=== PATIENT | female | born 1950 | race Caucasian/White ===

== ENCOUNTER 2019-02-11 11:02 | Day surgery (SDC) | payer MEDICARE ==
[~2019-02-11] VITALS: Ht 165.1 cm; Wt 80.3 kg
[~2019-02-11 11:02] MED LIST: ATOR40TA PO; CELE200 PO; HYDR1TAB94 PO; METF500 PO; OXYACE5T PO
[2019-02-11] MEDS ORDERED: NAPR500 (11:19)
[2019-02-11] MEDS ORDERED: GABA300 (11:19)
== END 2019-02-11 12:00 | disposition home or self-care (01) ==
LOC: ORSCSDS 11:02
PROVIDERS: Anesthesiology
PROC: 3E0R33Z Introduction of Anti-inflammatory into Spinal Canal, Percutaneous Approach (ICD-10-PCS; principal; 2019-02-11 12:00)
DX: M51.16 Intervertebral disc disorders with radiculopathy, lumbar region (principal); E11.9 Type 2 diabetes mellitus without complications; F17.210 Nicotine dependence, cigarettes, uncomplicated; Z79.899 Other long term (current) drug therapy
CPT/HCPCS: J1040

== ENCOUNTER 2019-04-23 10:56 | Day surgery (SDC) | payer MEDICARE ==
[~2019-04-23] VITALS: Ht 165.1 cm; Wt 78.6 kg
[~2019-04-23 10:56] MED LIST changes: +GABA300; +NAPR500
[2019-04-23] MEDS ORDERED: THERA1 EACH (11:16)
[2019-04-23] MEDS ORDERED: MELO7.5 (11:16)
[2019-04-23] MEDS ORDERED: OSTERA TABLET1 EACH (11:17)
[2019-04-23] MEDS ORDERED: Calcium Magnes1 EAC1 (11:18)
[2019-04-23] MEDS ORDERED: ATOR10 (11:19)
== END 2019-04-23 12:20 | disposition home or self-care (01) ==
LOC: ORSCSDS 10:56
PROVIDERS: Anesthesiology
PROC: 3E0R33Z Introduction of Anti-inflammatory into Spinal Canal, Percutaneous Approach (ICD-10-PCS; principal; 2019-04-23 12:00)
DX: M51.16 Intervertebral disc disorders with radiculopathy, lumbar region (principal); E11.9 Type 2 diabetes mellitus without complications; F17.210 Nicotine dependence, cigarettes, uncomplicated
CPT/HCPCS: J1040

== ENCOUNTER 2021-09-07 13:42 | Emergency (ER) | payer MEDICARE ==
[~2021-09-07] VITALS: Ht 167.6 cm; Wt 72.6 kg
[~2021-09-07 13:42] MED LIST changes: +ATOR10; +Calcium Magnes1 EAC1; +MELO7.5; +OSTERA TABLET1 EACH; +Percocet 5-3251 EACH PO; +THERA1 EACH; +XARELTO1 EAC1 PO
[2021-09-07 14:34] LABS: BASOPHILS ABSOLUTE AUTO 0.11 K/mm3 (0.00-0.23); BASOPHILS PERCENT AUTO 1 % (0-2); EOSINOPHILS ABSOLUTE AUTO 1.35 K/mm3 (0.00-0.68); EOSINOPHILS PERCENT AUTO 6 % (0-6); Hematocrit 30.7 % (33.0-51.0); Hemoglobin 10.4 g/dL (11.5-16.0); IMMATURE GRAN ABSOLUTE AUTO 0.13 K/mm3 (0.00-0.10); IMMATURE GRAN PERCENT AUTO 1 % (0-1); LYMPHOCYTES ABSOLUTE AUTO 1.94 K/mm3 (0.84-5.20); LYMPHOCYTES PERCENT AUTO 9 % (21-46); MONOCYTES ABSOLUTE AUTO 1.66 K/mm3 (0.16-1.47); MONOCYTES PERCENT AUTO 7 % (4-13); Mean Corpuscular HGB 28.1 pg (26.0-34.0); Mean Corpuscular HGB Conc 33.9 g/dL (31.5-36.5); Mean Corpuscular Volume 83 fL (80-100); Mean Platelet Volume 10.2 fL (9.1-12.4); NEUTROPHILS ABSOLUTE AUTO 17.18 K/mm3 (1.96-9.15); NEUTROPHILS PERCENT AUTO 77 % (41-73); Platelet Count 460 K/mm3 (150-400); RDW Coefficient Variation 12.9 % (11.7-14.2); RDW Standard Deviation 39.4 fL (35.1-46.3); White Blood Cell Count 22.37 K/mm3 (4.00-11.30)
[2021-09-07 14:49] LABS: Alanine Aminotransfer (ALT/SGP 12 U/L (12-78); Albumin, Blood 2.8 g/dL (3.4-5.0); Albumin/Globulin Ratio 0.7 (0.8-1.8); Alk Phos 82 U/L (50-136); Anion Gap 9 mmol/L (6-16); Aspartate Aminotrans (AST/SGOT 6 U/L (12-37); Bilirubin, Total 0.4 mg/dL (0.1-1.0); Blood Urea Nitrogen 9 mg/dL (8-24); Bun/Creatinine Ratio 20.5 (12.0-20.0); CO2, Blood 22 mmol/L (21-32); Calcium, Blood 8.8 mg/dL (8.5-10.1); Chloride, Blood 93 mmol/L (98-108); Creatinine, Blood 0.44 mg/dL (0.40-1.00); Glomerular Filtration Rate >60 (60-); Glucose, Blood 280 mg/dL (70-99); Sodium, Blood 124 mmol/L (136-145); Total Protein, Blood 6.8 g/dL (6.4-8.2)
[2021-09-07 17:23] LABS: Source, Urine Clean Catch
[2021-09-07 18:01] LABS: Appearance, Urine Hazy (Clear); Bilirubin, Urine Neg (Neg); Blood, Urine 1+ (Neg); Color, Urine Yellow (P-Yellow); Glucose Qualitative, Urine 3+ (Neg); Ketones, Urine 1+ (Neg); Leukocyte Esterase, Urine 1+ (Neg); Nitrite, Urine Neg (Neg); Protein, Urine 2+ (Neg); Urobilinogen, Urine NORM (Normal)
[2021-09-07 18:22] LABS: Red Blood Cells, Urine 0-2 /hpf (0-2); Squamous Epithelial Cells Mod /hpf (Few); White Blood Cells, Urine 0-2 /hpf (0-5)
[2021-09-07 18:23] LABS: Amorphous Mod (0-Heavy); Bacteria Many /hpf; Calcium Oxalate Crystals Mod /hpf; Mucus Mod (0-Heavy)
[2021-09-07] MEDS ORDERED: CEPH500 PO (18:33)
[2021-09-07] MEDS ORDERED: ALBU90OI INH (18:33)
[2021-09-07] MEDS ORDERED: Roxicodone5 MG PO (18:35)
[2021-09-07] MEDS ORDERED: COMBIVENT RESPIM4 G1 INH (22:52)
== END 2021-09-07 20:31 | disposition home or self-care (01) ==
LOC: ER 13:42
PROVIDERS: Physician Assistant; Student in an Organized Health Care Education/Training Program
DX: R91.8 Other nonspecific abnormal finding of lung field (principal); N39.0 Urinary tract infection, site not specified; E87.1 Hypo-osmolality and hyponatremia; R09.02 Hypoxemia; R73.03 Prediabetes; I10 Essential (primary) hypertension; Z87.891 Personal history of nicotine dependence; Z79.899 Other long term (current) drug therapy; Z88.1 Allergy status to other antibiotic agents
CPT/HCPCS: 36415; 80053; 81001; 83036; 83605; 84484; 85025; 87086; 93005; 93010; 96374; 99284-25; A9270; J1885; J7030